=== PATIENT | female | born 1955 | race Caucasian/White ===

== ENCOUNTER → 2016-09-04 | Day surgery (SDC) | payer OTHER ==
[~2016-09-04] VITALS: Ht 147.3 cm; Wt 42.4 kg
[~2016-09-04] MED LIST: *morphine SULFATE 8 MG/ML PERIprocedure ONLY ONE; ALBU0.08 NEB; ALBUAER3 INH; ALEN1TAB48 PO; AMLO5TAB2 PO; CHLORHEXIDINE GLUCONATE 2 % 1 PACK (2 CLOTHS) TOPICAL PRN; DEXAMETHASONE SOD PHOS 4 MG/ML VIAL ONE; DICL1GEL TOPICAL; DO NOT ADM ANY ANTICOAGULANT DRUGS PRN; EPINEPHrine HCL (1:1000) 1 MG/ML VIAL ONE; FURO20TA PO; GABA600T PO; HYDR-3133 PO; INSULIN HUMAN REGULAR 1,000 UNITS/10 ML VIAL SQ PRN; LACTATED RINGER'S 1000 ML IV PRN; LIDOCAINE HCL 2% 100 MG/5 ML SYRINGE ONE; LISI10TA3 PO; METOPROLOL TARTRATE 25 MG TAB PO PRN; MIRA3350 PO; MONT10TA4 PO; MORPHINE SULFATE 4 MG/ML INJ ONE; OMEP40CA2 PO; ONDANSETRON HCL 4 MG/2 ML VIAL IV PUSH ONE; PAME25CA PO; PERC7.5T13 PO; PERI8.6T PO; PHENYLEPH/NS 1000 MCG/10 ML SYR IV ONE; POVIDONE IODINE 5% (ANTISEPSIS KIT) 4 APPLICATIONS EACH NARE PRN; PRED10 PO; PROPOFOL 200 MG/20 ML AMP IV ONE; ROPI4TAB PO; SODIUM CHLORID 0.9% 500 ML IV PRN; SPIRCAP INH; SYMB160A INH; TRAZ50TA12 PO; [UNRECOGNIZED DRUG - OTHER]; ePHEDrine/NS 25 MG/5 ML SYR IV ONE
[2016-09-04 06:46] VITALS: BP 126/66; PULSE 64; RESP 18; TEMP 98.3; O2SAT 100
[2016-09-04 07:12] LABS: AUTOMATED NEUTROPHIL # 4.2 TH/MM3 (1.8-7.7); BASOPHIL % 0.7 % (0.0-2.0); EOSINOPHIL # 0.2 TH/MM3 (0-0.4); EOSINOPHIL % 3.1 % (0.0-4.0); HEMATOCRIT 34.8 % (35.0-46.0); HEMO FLAGS DIFF FINAL; LYMPH % 28.2 % (9.0-44.0); LYMPHOCYTE # 1.9 TH/MM3 (1.0-4.8); MEAN CELL VOLUME 87.1 FL (80.0-100.0); MEAN CORPUSCULAR HGB CONC 33.4 % (32.0-36.0); MONO % 6.1 % (0.0-8.0); NEUT % 61.9 % (16.0-70.0); PLATELET COUNT 178 TH/MM3 (150-450); RED BLOOD COUNT 3.99 MIL/MM3 (4.00-5.30); RED CELL DISTRIBUTION WIDTH 13.6 % (11.6-17.2); WHITE BLOOD COUNT 6.8 TH/MM3 (4.0-11.0)
[2016-09-04 07:32] LABS: APTT (PATIENT) 27.1 SEC (24.3-30.1); INTERNATIONAL NORMALIZED RATIO 0.9 RATIO; PROTHROMBIN TIME - PATIENT 10.3 SEC (9.8-11.6)
[2016-09-04 10:15] VITALS: BP 146/62; PULSE 76; RESP 20; TEMP 98.1; O2SAT 100
--- NOTE | 2016-09-15 19:05 | MR ---
cc: MAXIMO MARSH M.D. DATE 09/15/16 PROCEDURE Fiberoptic bronchoscopy flexible REASON FOR BRONCHOSCOPY Bilateral lung nodules, rule out underlying malignancy, rule out chronic inflammatory process. Fiberoptic bronchoscopy performed via LMA. Anesthesia general. Vocal cords visualized, appeared intact. Trachea mildly hyperemic. Karen sharp. Right main stem bronchus, right upper, middle and lower lobes, left main bronchus, left upper and lower lobes inspected. No obstructive pathology or mass lesion seen. Diffuse mild to moderate hyperemia throughout noticed. Washings obtained from both sides of the tracheobronchial tree for routine TB, fungal cultures as well as cytological exam. Cytological brush biopsies right lower lobe obtained for cytological exam. Procedure well tolerated. The patient transferred to recovery room in stable condition. IMPRESSION 1. Mild to moderate tracheobronchitis 2. No obstruction or mass lesion. 3. Samples obtained as above 4. Procedure well tolerated 5. Patient transferred to recovery in stable condition. Maximo Marsh MD WWW/ /1:45 PM /6:51 PM
== END | disposition home or self-care (01) ==
LOC: HSDC 05:36
PROVIDERS: ATTEND Internal Medicine Sleep Medicine
DX: R04.2 Hemoptysis (principal); J40 Bronchitis, not specified as acute or chronic; J44.9 Chronic obstructive pulmonary disease, unspecified; I10 Essential (primary) hypertension; G25.81 Restless legs syndrome; E78.00 Pure hypercholesterolemia, unspecified; J18.9 Pneumonia, unspecified organism; J30.9 Allergic rhinitis, unspecified; K21.9 Gastro-esophageal reflux disease without esophagitis; G47.9 Sleep disorder, unspecified; Z87.891 Personal history of nicotine dependence
CPT/HCPCS: 00520; 31623; 85025; 85610; 85730; 87015; 87070; 87102; 87116; 87205; 87206; J0171; J1100; J2270; J2370; J2405; J7120

== ENCOUNTER 2016-12-18 08:13 | Emergency (ER) | payer OTHER ==
[~2016-12-18] VITALS: Ht 147.3 cm; Wt 39.0 kg
[~2016-12-18 08:13] MED LIST changes: -*morphine SULFATE 8 MG/ML PERIprocedure ONLY ONE; +AMLO2.5T PO; +ASPI1CHW4 CHEW; -CHLORHEXIDINE GLUCONATE 2 % 1 PACK (2 CLOTHS) TOPICAL PRN; +CYCL5TAB PO; -DEXAMETHASONE SOD PHOS 4 MG/ML VIAL ONE; -DICL1GEL TOPICAL; -DO NOT ADM ANY ANTICOAGULANT DRUGS PRN; -EPINEPHrine HCL (1:1000) 1 MG/ML VIAL ONE; -FURO20TA PO; +GABA300C5 PO; -INSULIN HUMAN REGULAR 1,000 UNITS/10 ML VIAL SQ PRN; -LACTATED RINGER'S 1000 ML IV PRN; -LIDOCAINE HCL 2% 100 MG/5 ML SYRINGE ONE; -METOPROLOL TARTRATE 25 MG TAB PO PRN; -MORPHINE SULFATE 4 MG/ML INJ ONE; +NORT25CA PO; -ONDANSETRON HCL 4 MG/2 ML VIAL IV PUSH ONE; +OXYC1TAB35 PO; -PAME25CA PO; -PERI8.6T PO; -PHENYLEPH/NS 1000 MCG/10 ML SYR IV ONE; -POVIDONE IODINE 5% (ANTISEPSIS KIT) 4 APPLICATIONS EACH NARE PRN; +PRAM0.12 PO; -PRED10 PO; -PROPOFOL 200 MG/20 ML AMP IV ONE; +REQU4TAB3 PO; -ROPI4TAB PO; -SODIUM CHLORID 0.9% 500 ML IV PRN; +VENTAER INH; -[UNRECOGNIZED DRUG - OTHER]; -ePHEDrine/NS 25 MG/5 ML SYR IV ONE
[2016-12-18 08:14] VITALS: BP 142/93; PULSE 77; RESP 13; TEMP 98; O2SAT 100
[2016-12-18] MEDS ORDERED: OMEP40CA2 PO (08:31)
[2016-12-18] MEDS ORDERED: MONT10TA4 PO (08:31)
[2016-12-18] MEDS ORDERED: PRAM0.12 PO (08:31)
[2016-12-18] MEDS ORDERED: AMLO5TAB2 PO (08:31)
[2016-12-18] MEDS ORDERED: LISI-515 PO (08:31)
[2016-12-18] MEDS ORDERED: ALBUAER3 INH (08:31)
[2016-12-18] MEDS ORDERED: CYCL5TAB PO (08:31)
[2016-12-18] MEDS ORDERED: SODIUM CHLOR 0.9% 1000 ML INJ 1,000 ML IV SCH (08:36)
[2016-12-18] MEDS ORDERED: SODIUM CHLORIDE 0.9% FLUSH 10 ML FLUSH IV FLUSH PRN (08:45)
[2016-12-18] MEDS ORDERED: oxyCODONE/ACETAMINOPHEN 5 MG/325 MG TAB PO ONE (08:45)
[2016-12-18 08:57] LABS: AUTOMATED NEUTROPHIL # 3.4 TH/MM3 (1.8-7.7); BASOPHIL # 0.1 TH/MM3 (0-0.2); EOSINOPHIL # 0.2 TH/MM3 (0-0.4); EOSINOPHIL % 3.1 % (0.0-4.0); HEMATOCRIT 41.4 % (35.0-46.0); HEMO FLAGS DIFF FINAL; LYMPH % 36.7 % (9.0-44.0); LYMPHOCYTE # 2.3 TH/MM3 (1.0-4.8); MEAN CORPUSCULAR HEMOGLOBIN 29.7 PG (27.0-34.0); MEAN CORPUSCULAR HGB CONC 34.5 % (32.0-36.0); MONO % 4.7 % (0.0-8.0); NEUT % 54.5 % (16.0-70.0); PLATELET COUNT 212 TH/MM3 (150-450); RED BLOOD COUNT 4.81 MIL/MM3 (4.00-5.30); WHITE BLOOD COUNT 6.2 TH/MM3 (4.0-11.0)
[2016-12-18 08:59] LABS: BLOOD, URINE NEG (NEG); GLUCOSE,URINE NEG (NEG); KETONE, URINE NEG (NEG); NITRITE,URINE NEG (NEG); URINE COLOR YELLOW (YELLW/STRAW)
[2016-12-18 09:01] LABS: COMMENT (UR) CULT NOT INDICATED; CULTURE IF INDICATED CULT NOT INDICATED
[2016-12-18 09:22] LABS: ALKALINE PHOSPHATASE 113 U/L (45-117); ALT (GPT) 22 U/L (10-53); TOTAL BILIRUBIN ADULT 0.4 MG/DL (0.2-1.0)
[2016-12-18 09:42] LABS: ANION GAP 5 MEQ/L (5-15); AST (GOT) 17 U/L (15-37); BICARBONATE 31.2 MEQ/L (21.0-32.0); BLOOD UREA NITROGEN 7 MG/DL (7-18); CHLORIDE 103 MEQ/L (98-107); GLOMERULAR FILTRATION RATE 72 ML/MIN (>89); POTASSIUM 4.4 MEQ/L (3.5-5.1); SODIUM (NA) 139 MEQ/L (136-145)
--- NOTE | 2016-12-18 10:00 | PD ---
HPI Chief Complaint: Abdominal Pain Time Seen by Provider: 08:32 Travel History International Travel<30 days: No Contact w/Intl Traveler<30days: No Traveled to known affect area: No History of Present Illness HPI 61-year-old female arrives due to pelvic pain. She reports decreased urination. Duration is only several weeks. She was evidently diagnosed with a potential mass based on CT imaging about 8 months ago. Subsequent sigmoidoscopy revealed no mass however colonoscopy was recommended however none was performed. She follows with family reunification specialist service and has been taking Percocet 7.5 mg tablets as needed for pain. She's had no fever. Nausea is reported however no vomiting. PFSH Past Medical History Arthritis: Yes (RA) Heart Rhythm Problems: No Cancer: Yes (BREAST) Cardiac Catheterization: Yes Cardiovascular Problems: Yes (PACEMAKER) High Cholesterol: No Chest Pain: Yes Congestive Heart Failure: No Cerebrovascular Accident: Yes (TIA) Diabetes: No Diminished Hearing: No Hypertension: Yes Implanted Vascular Access Dvce: Yes ([employer], MODEL [id number]) Past Surgical History Cardiac Surgery: Yes (PACEMAKER) Cholecystectomy: Yes Coronary Artery Bypass Graft: No Mastectomy: Yes (RIGHT) Family History Family Myocardial Infarction: Yes (father, brother) Social History Alcohol Use: No Tobacco Use: Yes Substance Use: No Allergies-Medications (Allergen,Severity, Reaction): Coded Allergies: pregabalin (Unverified Allergy, Severe, Rash, 12/18/16) tramadol (Unverified Allergy, Severe, Rash, 12/18/16) Reported Meds & Prescriptions Reported Meds & Active Scripts Active Reported Oxycodone-Acetaminophen 7.5-325 mg Tab 1 Tab PO Q6H PRN Proair Hfa 8.5 GM Inh (Albuterol Sulfate) 90 Mcg/Act Aer 2 Puff INH Q4HR PRN 108 mcg/actuation Pramipexole (Pramipexole Dihydrochloride) 0.125 Mg Tab 0.125 Mg PO DAILY Omeprazole 40 Mg Cap 40 Mg PO DAILY Montelukast (Montelukast Sodium) 10 Mg Tab 10 Mg PO HS Lisinopril 20 Mg Tab 20 Mg PO DAILY Flexeril (Cyclobenzaprine HCl) 5 Mg Tab 5 Mg PO TID Amlodipine (Amlodipine Besylate) 5 Mg Tab 5 Mg PO BID Aspirin 81 Low Dose (Aspirin) 81 Mg Chew 81 Mg CHEW DAILY Ventolin Hfa 18 GM Inh (Albuterol Sulfate) 90 Mcg/Act Aer 2 Puff INH Q4H PRN Symbicort Inh (Budesonide/Formoterol Fumarate) 160-4.5 Mcg/Act Aero 2 Puff INH Q12HR Spiriva Handihaler (Tiotropium Inh) 18 Mcg Cap 18 Mcg INH DAILY 1 capsule = 18 mcg Hydroxyzine HCl 25 Mg Tab 25 Mg PO TID Trazodone (Trazodone HCl) 50 Mg Tab 50 Mg PO HS Nortriptyline (Nortriptyline HCl) 25 Mg Cap 25 Mg PO HS Gabapentin 300 Mg Cap 600 Mg PO TID Review of Systems Except as stated in HPI: all other systems reviewed are Neg General / Constitutional: No: Fever Genitourinary: Positive: Pelvic Pain Physical Exam Narrative GENERAL: 61-year-old female pleasant well-nourished well-developed mild distress secondary to pain SKIN: Focused skin assessment warm/dry. HEAD: Atraumatic. Normocephalic. EYES: Pupils equal and round. No scleral icterus. No injection or drainage. ENT: No nasal bleeding or discharge. Mucous membranes pink and moist. NECK: Trachea midline. No JVD. CARDIOVASCULAR: Regular rate and rhythm. No murmur appreciated. RESPIRATORY: No accessory muscle use. Clear to auscultation. Breath sounds equal bilaterally. GASTROINTESTINAL: Soft. Tenderness palpation supra pubic abdomen. MUSCULOSKELETAL: No obvious deformities. No clubbing. No cyanosis. No edema. NEUROLOGICAL: Awake and alert. No obvious cranial nerve deficits. Motor grossly within normal limits. Normal speech. PSYCHIATRIC: Appropriate mood and affect; insight and judgment normal. Data Data Last Documented VS Vital Signs Date Time Temp Pulse Resp B/P (MAP) Pulse Ox O2 Delivery O2 Flow Rate FiO2 12/18/16 11:13 73 15 141/65 (90) 97 12/18/16 08:14 98.0 Orders Orders Complete Blood Count With Diff (12/18/16 08:36) Comprehensive Metabolic Panel (12/18/16 08:36) Lipase (12/18/16 08:36) Lactic Acid (12/18/16 08:36) Urinalysis - C+S If Indicated (12/18/16 08:36) Ct Abd/Pel W Iv Contrast(Rout) (12/18/16 08:36) Iv Access Insert/Monitor (12/18/16 08:36) Ecg Monitoring (12/18/16 08:36) Oximetry (12/18/16 08:36) Sodium Chlor 0.9% 1000 Ml Inj (Ns 1000 M (12/18/16 08:36) Sodium Chloride 0.9% Flush (Ns Flush) (12/18/16 08:45) Oxycodone-Acetamin 5-325 Mg (Percocet (12/18/16 08:45) Iohexol 350 Inj (Omnipaque 350 Inj) (12/18/16 10:05) Dicyclomine Inj (Bentyl Inj) (12/18/16 10:30) Ketorolac Inj (Toradol Inj) (12/18/16 10:30) Al-Mag Hy-Si 40-40-4 Mg/Ml Liq (Mag-Al P (12/18/16 10:30) Lidocaine 2% Viscous (Xylocaine 2% Visco (12/18/16 10:30) Ed Discharge Order (12/18/16 10:44) Labs Laboratory Tests Test 12/18/16 08:44 12/18/16 08:47 White Blood Count 6.2 TH/MM3 Red Blood Count 4.81 MIL/MM3 Hemoglobin 14.3 GM/DL Hematocrit 41.4 % Mean Corpuscular Volume 86.0 FL Mean Corpuscular Hemoglobin 29.7 PG Mean Corpuscular Hemoglobin Concent 34.5 % Red Cell Distribution Width 14.0 % Platelet Count 212 TH/MM3 Mean Platelet Volume 9.9 FL Neutrophils (%) (Auto) 54.5 % Lymphocytes (%) (Auto) 36.7 % Monocytes (%) (Auto) 4.7 % Eosinophils (%) (Auto) 3.1 % Basophils (%) (Auto) 1.0 % Neutrophils # (Auto) 3.4 TH/MM3 Lymphocytes # (Auto) 2.3 TH/MM3 Monocytes # (Auto) 0.3 TH/MM3 Eosinophils # (Auto) 0.2 TH/MM3 Basophils # (Auto) 0.1 TH/MM3 CBC Comment DIFF FINAL Differential Comment Urine Color YELLOW Urine Turbidity CLEAR Urine pH 7.0 Urine Specific [place] 1.015 Urine Protein NEG mg/dL Urine Glucose (UA) NEG mg/dL Urine Ketones NEG mg/dL Urine Occult Blood NEG Urine Nitrite NEG Urine Bilirubin NEG Urine Urobilinogen 2.0 MG/DL Urine Leukocyte Esterase NEG Urine RBC LESS THAN 1 /hpf Urine WBC LESS THAN 1 /hpf Microscopic Urinalysis Comment CULT NOT INDICATED Blood Urea Nitrogen 7 MG/DL Creatinine 0.81 MG/DL Random Glucose 134 MG/DL Total Protein 7.9 GM/DL Albumin 3.8 GM/DL Calcium Level 9.1 MG/DL Alkaline Phosphatase 113 U/L Aspartate Amino Transf (AST/SGOT) 17 U/L Alanine Aminotransferase (ALT/SGPT) 22 U/L Total Bilirubin 0.4 MG/DL Sodium Level 139 MEQ/L Potassium Level 4.4 MEQ/L Chloride Level 103 MEQ/L Carbon Dioxide Level 31.2 MEQ/L Anion Gap 5 MEQ/L Estimat Glomerular Filtration Rate 72 ML/MIN Lipase 58 U/L Lactic Acid Level 1.2 mmol/L MDM Medical Decision Making Medical Screen Exam Complete: Yes Emergency Medical Condition: Yes Medical Record Reviewed: Yes Differential Diagnosis Gastritis, pancreatitis, appendicitis, acute cholecystitis, ascending cholangitis, AAA, perforated viscous, mesenteric ischemia, hepatitis, cystitis, hydronephrosis/hydroureter/nephroureter calculus, mesenteric adenitis, biliary colic Narrative Course CBC & BMP Diagram 12/18/16 08:44 Total Protein 7.9, Albumin 3.8, Calcium Level 9.1, Alkaline Phosphatase 113, Aspartate Amino Transf (AST/SGOT) 17, Alanine Aminotransferase (ALT/SGPT) 22, Total Bilirubin 0.4 Lactic acid 1.2 Lipase 58 Urinalysis no UTI Last Impressions Abdomen/Pelvis CT 12/18/16 0836 Signed Impressions: Service Date/Time: Sunday, December 18, 2016 10:02 - CONCLUSION: Negative for pelvic mass. Jesus Venegas MD FACR Etiology unclear for pain. RN reports patient requested IV pain medication raising possibility of opioid tolerance. We'll try alternative pain management. GI follow up. Pt agreeable w plan. Diagnosis Primary Impression: Pelvic pain in female Referrals: Primary Care Physician 2 days Additional Instructions: You have a choice when it comes to health care, and we are glad that you chose [facility]. Hopefully, we have met your expectations on today's visit. You are welcome to return to [facility] at any time, as we are committed to meeting the health care needs of our community. Med/Other Pt SpecificInfo: Prescription(s) given Scripts Promethazine (Phenergan) 25 Mg Tablet 25 MG PO Q6H Y for NAUSEA OR VOMITING, #20 TAB 0 Refills Prov: Edgardo Han MD 12/18/16 Dicyclomine (Bentyl) 10 Mg Cap 10 MG PO TID for Bowel Management, #30 CAP 0 Refills Prov: Edgardo Han MD 12/18/16 Disposition: 01 DISCHARGE HOME Condition: Stable Edgardo Han MD Dec 18, 2016 10:00
[2016-12-18] MEDS ORDERED: IOHEXOL 350 MG/ML 10 ML VIAL (for RAD DIAG) IVCONTRAST ONE (10:05)
[2016-12-18] MEDS ORDERED: OXYC1TAB35 PO (10:25)
--- NOTE | 2016-12-18 10:29 | RADRPT ---
EXAM DATE/TIME: 12/18/2016 10:02 [facility] COMPARISON: No previous studies available for comparison. INDICATIONS : Pelvic pain for a few weeks. IV CONTRAST: 80 cc Omnipaque 350 (iohexol) IV ORAL CONTRAST: No oral contrast ingested. RADIATION DOSE: 4.98 CTDIvol (mGy) MEDICAL HISTORY : Carcinoma, breast. Hypertension. SURGICAL HISTORY : Cholecystectomy. Mastectomy, right. ENCOUNTER: Initial ACUITY: 3 weeks PAIN SCALE: 5/10 LOCATION: Bilateral pelvis TECHNIQUE: Volumetric scanning of the abdomen and pelvis was performed. Using automated exposure control and ad justment of the mA and/or kV according to patient size, radiation dose was kept as low as reasonably achievable to obtain optimal diagnostic quality images. DICOM format image data is available electro nically for review and comparison. FINDINGS: The lung base is are clear. The liver, spleen, pancreas and adrenals are unremarkable. Surgical clips are seen at the GE junctio n. There is symmetrical renal function. There is no ascites or adenopathy. Stool is seen throughout the colon There is no evidence for mass in the pelvis. The uterine cervical junction is prominent.. Direct vi sualization is suggested. Abdominal wall is intact Review of bone windows reveals only degenerative changes. CONCLUSION: Negative for pelvic mass. Jesus Venegas MD FACR on December 18, 2016 at 10:26 Board Certified Radiologist. This report was verified electronically.
[2016-12-18] MEDS ORDERED: KETOROLAC TROMETHAMINE 30 MG/ML (IVP) VIAL IVP ONE (10:30)
[2016-12-18] MEDS ORDERED: LIDOCAINE VISCOUS 2% SOLN 15 ML UDC PO ONE (10:30)
[2016-12-18] MEDS ORDERED: DICYCLOMINE HCL 20 MG/2 ML VIAL IM ONE (10:30)
[2016-12-18] MEDS ORDERED: ALUMINUM/MAGNESIUM/SIMETH 30 ML CUP PO ONE (10:30)
[2016-12-18 11:13] VITALS: BP 141/65
[2016-12-18] MEDS ORDERED: DICY10 PO (11:46)
[2016-12-18] MEDS ORDERED: PROM25TA10 PO (11:46)
[2016-12-28] MEDS ORDERED: GABA600T PO (12:26)
[2016-12-31] MEDS ORDERED: SYMB160A INH (10:50)
[2016-12-31] MEDS ORDERED: ALBUAER3 INH (10:50)
== END 2016-12-18 11:41 | disposition home or self-care (01) ==
LOC: NEPE 08:13 → MERGE 08:13 → NEPE 11:41
DX: R10.2 Pelvic and perineal pain (principal); M06.9 Rheumatoid arthritis, unspecified; I10 Essential (primary) hypertension; Z95.0 Presence of cardiac pacemaker; Z86.73 Personal history of transient ischemic attack (TIA), and cerebral infarction without residual deficits; Z85.3 Personal history of malignant neoplasm of breast; Z72.0 Tobacco use
CPT/HCPCS: 74177; 80053; 81001; 83605; 83690; 85025; 96361; 96372; 96374; 99285; J0500; J1885; J7030; Q9967

== ENCOUNTER 2017-01-13 14:48 | Emergency (ER) | payer OTHER ==
[~2017-01-13 14:48] MED LIST changes: -AMLO2.5T PO; +DICY10 PO; +LISI-515 PO; +PROM25TA10 PO; -REQU4TAB3 PO
[2017-01-13] MEDS ORDERED: IOHEXOL 350 MG/ML 10 ML VIAL (for RAD DIAG) IVCONTRAST ONE (14:49)
[2017-01-13 14:51] VITALS: BP 140/63; PULSE 90; RESP 20; TEMP 98.6; O2SAT 99
[2017-01-13 16:54] LABS: AUTOMATED NEUTROPHIL # 10.2 TH/MM3 (1.8-7.7); BASOPHIL # 0.1 TH/MM3 (0-0.2); BASOPHIL % 0.7 % (0.0-2.0); EOSINOPHIL # 0.2 TH/MM3 (0-0.4); EOSINOPHIL % 1.7 % (0.0-4.0); HEMATOCRIT 41.5 % (35.0-46.0); HEMO FLAGS DIFF FINAL; LYMPH % 18.6 % (9.0-44.0); LYMPHOCYTE # 2.5 TH/MM3 (1.0-4.8); MEAN CELL VOLUME 85.6 FL (80.0-100.0); MEAN CORPUSCULAR HGB CONC 33.9 % (32.0-36.0); MONO % 4.8 % (0.0-8.0); NEUT % 74.2 % (16.0-70.0); PLATELET COUNT 257 TH/MM3 (150-450); RED BLOOD COUNT 4.85 MIL/MM3 (4.00-5.30); RED CELL DISTRIBUTION WIDTH 13.3 % (11.6-17.2); WHITE BLOOD COUNT 13.7 TH/MM3 (4.0-11.0)
[2017-01-13 17:11] LABS: POTASSIUM 4.7 MEQ/L (3.5-5.1)
[2017-01-13 17:36] LABS: BLOOD, URINE NEG (NEG); COMMENT (UR) CULT NOT INDICATED; CULTURE IF INDICATED CULT NOT INDICATED; GLUCOSE,URINE NEG (NEG); KETONE, URINE NEG (NEG); NITRITE,URINE NEG (NEG); PH, URINE 7.5 (5.0-8.5); SQUAMOUS EPITHELIAL CELL URINE 1 /hpf (0-5); URINE COLOR YELLOW (YELLW/STRAW)
[2017-01-13] MEDS ORDERED: SODIUM CHLORIDE 0.9% FLUSH 10 ML FLUSH IV FLUSH PRN (17:45)
[2017-01-13] MEDS ORDERED: DICYCLOMINE HCL 20 MG/2 ML VIAL IM ONE (17:45)
--- NOTE | 2017-01-13 17:51 | PD ---
HPI Chief Complaint: Abdominal Pain Time Seen by Provider: 17:25 Travel History International Travel<30 days: No Contact w/Intl Traveler<30days: No Traveled to known affect area: No History of Present Illness HPI 61-year-old female complains of low abdominal pain and pelvic pain. Patient has history recurrent low abdominal pelvic pain. Patient states the pain is cramping pain and sharp pain localized to lower abdomen pelvic area. Patient denies any pain radiation. On a scale of 1-10 the pain is a 10. Patient has been seen in emergency room and by personal physician for that. Patient was referred to GI specialist. Patient is awaiting colonoscopy 7 days from now. Patient states that the pain is worse today. Patient states that she has persistent nausea but no vomiting no diarrhea. Patient denies any dysuria or frequency. Patient states that he has low-grade fever at home. Patient has history of asthma, hypertension, osteoporosis, chronic pain, Brugada syndrome status post pacemaker placement. Patient status post hysterectomy, status post colonoscopy with polyps removal, right breast lumpectomy. Patient's on chronic pain medication at home. PFSH Past Medical History Arthritis: Yes (RA) Asthma: Yes Heart Rhythm Problems: No Cancer: Yes (BREAST) Cardiac Catheterization: Yes Cardiovascular Problems: Yes High Cholesterol: No Chest Pain: Yes Congestive Heart Failure: No COPD: Yes Cerebrovascular Accident: Yes (TIA) Diabetes: No Diminished Hearing: No Endocrine: No Gastrointestinal Disorders: Yes (ACID REFLUX) Genitourinary: No Hepatitis: No Hiatal Hernia: No Heparin Induced Thrombocytopen: No Hypertension: Yes Immune Disorder: No Implanted Vascular Access Dvce: Yes ([employer], MODEL [id number]) Musculoskeletal: Yes (arthritis entire body degenerative disease) Neurologic: No Psychiatric: No Reproductive: Yes (hx of hysterectomy) Respiratory: Yes Immunizations Current: No Thyroid Disease: No Tetanus Vaccination: < 5 Years Menopausal: Yes : 4 Para: 4 Miscarriage: 0 : 0 Past Surgical History Abdominal Surgery: Yes (HERNIA REPAIR, CHOLECYSTECTOMY) AICD: Yes Cardiac Surgery: Yes (PACEMAKER) Cholecystectomy: Yes Coronary Artery Bypass Graft: No Endocrine Surgery: No Genitourinary Surgery: No Gynecologic Surgery: Yes (fibroids in breast, HYSERTECTOMY) Hysterectomy: Yes Joint Replacement: No Mastectomy: Yes (RIGHT) Pacemaker: Yes ([employer]) Other Surgery: Yes (abd hernia, right knee surgery) Family History Family Myocardial Infarction: Yes (father, brother) Social History Alcohol Use: No Tobacco Use: Yes Substance Use: No Allergies-Medications (Allergen,Severity, Reaction): Coded Allergies: tramadol (Unverified Allergy, Severe, Palpitations, 01/13/17) duloxetine (Unverified Allergy, Intermediate, Rash, 01/13/17) Rash all over ibuprofen (Unverified Allergy, Intermediate, Nausea/Vomiting, 01/13/17) ketorolac (Unverified Allergy, Intermediate, Rash, 01/13/17) Rash all over body naproxen (Unverified Allergy, Intermediate, Rash, 01/13/17) Rash all over body pregabalin (Unverified Allergy, Intermediate, Rash, 01/13/17) Rash all over body promethazine (Unverified Allergy, Intermediate, Rash, 01/13/17) Rash all over body tizanidine (Unverified Allergy, Intermediate, Elevated blood sugar , ) Reported Meds & Prescriptions Reported Meds & Active Scripts Active Bentyl (Dicyclomine HCl) 10 Mg Cap 10 Mg PO TID PRN Omeprazole 40 Mg Cap 40 Mg PO DAILY Alendronate (Alendronate Sodium) 70 Mg Tab 70 Mg PO Q7D Symbicort Inh (Budesonide/Formoterol Fumarate) 160-4.5 Mcg/Act Aero 2 Puff INH ONCE Proair Hfa 8.5 GM Inh (Albuterol Sulfate) 90 Mcg/Act Aer 2 Puff INH Q4HR PRN 108 mcg/actuation Gabapentin 600 Mg Tab 600 Mg PO TID Phenergan (Promethazine HCl) 25 Mg Tablet 25 Mg PO Q6H PRN Bentyl (Dicyclomine HCl) 10 Mg Cap 10 Mg PO TID Pramipexole (Pramipexole Dihydrochloride) 0.125 Mg Tab 0.125 Mg PO DAILY Percocet (Oxycodone-Acetaminophen) 7.5-325 mg Tab 1 Tab PO Q6H PRN Do not fill until 02/03/2017 Percocet (Oxycodone-Acetaminophen) 7.5-325 mg Tab 1 Tab PO Q6H PRN Do not fill until 01/04/2017 Percocet (Oxycodone-Acetaminophen) 7.5-325 mg Tab 1 Tab PO Q6HR PRN Lisinopril 10 Mg Tab 20 Mg PO DAILY Spiriva Handihaler (Tiotropium Inh) 18 Mcg Cap 18 Mcg INH DAILY 1 capsule = 18 mcg Montelukast (Montelukast Sodium) 10 Mg Tab 10 Mg PO HS Trazodone (Trazodone HCl) 50 Mg Tab 50 Mg PO HS Miralax Powder (Polyethylene Glycol 3350 Powder) 17 Gm Powd 17 Gm PO DAILY Mix and dissolve one measuring cap-ful (17 grams) in water or juice. Amlodipine (Amlodipine Besylate) 5 Mg Tab 5 Mg PO BID Albuterol Neb (Albuterol Sulfate) 2.5 Mg/3 Ml Neb 2.5 Mg NEB Q4HR NEB PRN Flexeril (Cyclobenzaprine HCl) 5 Mg Tab 5 Mg PO TID Hydroxyzine HCl 25 Mg Tab 25 Mg PO TID PRN Reported Oxycodone-Acetaminophen 7.5-325 mg Tab 1 Tab PO Q6H PRN Proair Hfa 8.5 GM Inh (Albuterol Sulfate) 90 Mcg/Act Aer 2 Puff INH Q4HR PRN 108 mcg/actuation Pramipexole (Pramipexole Dihydrochloride) 0.125 Mg Tab 0.125 Mg PO DAILY Omeprazole 40 Mg Cap 40 Mg PO DAILY Montelukast (Montelukast Sodium) 10 Mg Tab 10 Mg PO HS Lisinopril 20 Mg Tab 20 Mg PO DAILY Flexeril (Cyclobenzaprine HCl) 5 Mg Tab 5 Mg PO TID Amlodipine (Amlodipine Besylate) 5 Mg Tab 5 Mg PO BID Aspirin 81 Low Dose (Aspirin) 81 Mg Chew 81 Mg CHEW DAILY Ventolin Hfa 18 GM Inh (Albuterol Sulfate) 90 Mcg/Act Aer 2 Puff INH Q4H PRN Symbicort Inh (Budesonide/Formoterol Fumarate) 160-4.5 Mcg/Act Aero 2 Puff INH Q12HR Spiriva Handihaler (Tiotropium Inh) 18 Mcg Cap 18 Mcg INH DAILY 1 capsule = 18 mcg Hydroxyzine HCl 25 Mg Tab 25 Mg PO TID Trazodone (Trazodone HCl) 50 Mg Tab 50 Mg PO HS Nortriptyline (Nortriptyline HCl) 25 Mg Cap 25 Mg PO HS Gabapentin 300 Mg Cap 600 Mg PO TID Review of Systems General / Constitutional: No: Fever Eyes: No: Visual changes HENT: No: Headaches Cardiovascular: No: Chest Pain or Discomfort Respiratory: No: Shortness of Breath Gastrointestinal: Positive: Nausea, Abdominal Pain Genitourinary: No: Dysuria Musculoskeletal: No: Pain Skin: No Rash Neurologic: No: Weakness Psychiatric: No: Depression Endocrine: No: Polydipsia Hematologic/Lymphatic: No: Easy Bruising Physical Exam Narrative GENERAL: Well-nourished, well-developed patient. SKIN: Focused skin assessment warm/dry. HEAD: Normocephalic. EYES: No scleral icterus. No injection or drainage. NECK: Supple, trachea midline. No JVD or lymphadenopathy. CARDIOVASCULAR: Regular rate and rhythm without murmurs, gallops, or rubs. RESPIRATORY: Breath sounds equal bilaterally. No accessory muscle use. GASTROINTESTINAL: Abdomen soft, nondistended. Patient has moderate tenderness on palpation lower abdomen. No rebound tenderness. No mass. MUSCULOSKELETAL: No cyanosis, or edema. BACK: Nontender without obvious deformity. No CVA tenderness. Neurologic exam normal. Data Data Last Documented VS Vital Signs Date Time Temp Pulse Resp B/P (MAP) Pulse Ox O2 Delivery O2 Flow Rate FiO2 01/13/17 17:59 99 01/13/17 14:51 98.6 90 20 Orders Orders Urinalysis - C+S If Indicated (01/13/17 15:24) Complete Blood Count With Diff (01/13/17 15:25) Basic Metabolic Panel (Bmp) (01/13/17 15:25) Ct Abd/Pel W Iv Contrast(Rout) (01/13/17 17:43) Iv Access Insert/Monitor (01/13/17 17:43) Ecg Monitoring (01/13/17 17:43) Oximetry (01/13/17 17:43) Sodium Chloride 0.9% Flush (Ns Flush) (01/13/17 17:45) Dicyclomine Inj (Bentyl Inj) (01/13/17 17:45) Iohexol 350 Inj (Omnipaque 350 Inj) (01/13/17 14:49) Ed Discharge Order (01/13/17 19:29) Labs Laboratory Tests Test 01/13/17 15:35 01/13/17 16:07 Urine Color YELLOW Urine Turbidity HAZY Urine pH 7.5 Urine Specific [place] 1.025 Urine Protein TRACE mg/dL Urine Glucose (UA) NEG mg/dL Urine Ketones NEG mg/dL Urine Occult Blood NEG Urine Nitrite NEG Urine Bilirubin NEG Urine Urobilinogen LESS THAN 2.0 MG/DL Urine Leukocyte Esterase NEG Urine WBC LESS THAN 1 /hpf Urine Squamous Epithelial Cells 1 /hpf Microscopic Urinalysis Comment CULT NOT INDICATED White Blood Count 13.7 TH/MM3 Red Blood Count 4.85 MIL/MM3 Hemoglobin 14.1 GM/DL Hematocrit 41.5 % Mean Corpuscular Volume 85.6 FL Mean Corpuscular Hemoglobin 29.0 PG Mean Corpuscular Hemoglobin Concent 33.9 % Red Cell Distribution Width 13.3 % Platelet Count 257 TH/MM3 Mean Platelet Volume 9.5 FL Neutrophils (%) (Auto) 74.2 % Lymphocytes (%) (Auto) 18.6 % Monocytes (%) (Auto) 4.8 % Eosinophils (%) (Auto) 1.7 % Basophils (%) (Auto) 0.7 % Neutrophils # (Auto) 10.2 TH/MM3 Lymphocytes # (Auto) 2.5 TH/MM3 Monocytes # (Auto) 0.7 TH/MM3 Eosinophils # (Auto) 0.2 TH/MM3 Basophils # (Auto) 0.1 TH/MM3 CBC Comment DIFF FINAL Differential Comment Blood Urea Nitrogen 12 MG/DL Creatinine 0.75 MG/DL Random Glucose 89 MG/DL Calcium Level 9.6 MG/DL Sodium Level 136 MEQ/L Potassium Level 4.7 MEQ/L Chloride Level 103 MEQ/L Carbon Dioxide Level 29.0 MEQ/L Anion Gap 4 MEQ/L Estimat Glomerular Filtration Rate 79 ML/MIN [facility] Medical Decision Making Medical Screen Exam Complete: Yes Emergency Medical Condition: Yes Medical Record Reviewed: Yes Interpretation(s) [address] abdomen and pelvis shows prominence of intrahepatic electrocardiac biliary system status post cholecystectomy. Differential Diagnosis Differential diagnosis including colitis, UTI, pyelonephritis, and nephrolithiasis, appendicitis Narrative Course 61-year-old female with recurrent low abdominal pain. Diagnosis Primary Impression: Abdominal pain Qualified Codes: R10.30 - Lower abdominal pain, unspecified Patient Instructions: General Instructions Additional Instructions: Bentyl as needed. Continue all medication. Follow-up with GI specialist and personal physician. Return if worse. Med/Other Pt SpecificInfo: Prescription(s) given Scripts Dicyclomine (Bentyl) 10 Mg Cap 10 MG PO TID Y for Bowel Management, #30 CAP 0 Refills Prov: José Luis Polk MD 01/13/17 Disposition: 01 DISCHARGE HOME Condition: Stable José Luis Polk MD Jan 13, 2017 17:51
[2017-01-13 17:59] VITALS: O2SAT 99
--- NOTE | 2017-01-13 19:19 | RADRPT ---
EXAM DATE/TIME: 01/13/2017 18:49 [facility] COMPARISON: CT ABDOMEN & PELVIS W CONTRAST, December 18, 2016, 10:02. INDICATIONS : Abdomen and pelvic pain past month. IV CONTRAST: 75 cc Omnipaque 350 (iohexol) IV ORAL CONTRAST: No oral contrast ingested. RADIATION DOSE: 6.64 CTDIvol (mGy) MEDICAL HISTORY : Cardiovascular disease. Hypertension. Chronic obstructive pulmonary disease.Breast cancer SURGICAL HISTORY : Mastectomy, bilateral. Cholecystectomy.Hysterectomy. ENCOUNTER: Initial ACUITY: 1 month PAIN SCALE: 5/10 LOCATION: Bilateral abdomen and pelvis TECHNIQUE: Volumetric scanning of the abdomen and pelvis was performed. Using automated exposure control and ad justment of the mA and/or kV according to patient size, radiation dose was kept as low as reasonably achievable to obtain optimal diagnostic quality images. DICOM format image data is available electro nically for review and comparison. FINDINGS: LOWER LUNGS: The visualized lower lungs are clear. LIVER: Homogeneous density without lesion. There is mild prominence of the central intrahepatic and extrahep atic biliary system with the common bile duct measuring 9 mm. No calcified distal common bile duct ca lculus is noted. Correlation with alkaline phosphatase and bilirubin levels is suggested to rule out biliary obstruction. [place] phenomenon status post cholecystectomy is also in the differential. SPLEEN: Normal size without lesion. PANCREAS: Within normal limits. KIDNEYS: Normal in size and shape. There is no mass, stone or hydronephrosis. ADRENAL GLANDS: Within normal limits. VASCULAR: There is no aortic aneurysm. BOWEL/MESENTERY: The stomach, small bowel, and colon demonstrate no acute abnormality. There is no free intraperitone al air or fluid. ABDOMINAL WALL: Within normal limits. RETROPERITONEUM: There is no lymphadenopathy. BLADDER: No wall thickening or mass. REPRODUCTIVE: Within normal limits. INGUINAL: There is no lymphadenopathy or hernia. MUSCULOSKELETAL: Within normal limits for patient age. CONCLUSION: Mild prominence of the central intrahepatic and extrahepatic biliary system with the common bile duct measuring 9 mm. No calcified distal common bile duct calculus is noted. Correlation with alkaline phosphatase and bilirubin levels is suggested to rule out biliary obstruction. Reservoi r phenomenon status post cholecystectomy is also in the differential. Vickey Barboza MD on January 13, 2017 at 19:12 Board Certified Radiologist. This report was verified electronically.
[2017-01-13] MEDS ORDERED: DICY10 PO (19:29)
== END 2017-01-13 20:13 | disposition home or self-care (01) ==
LOC: NEPD 14:48
DX: R10.2 Pelvic and perineal pain (principal); I10 Essential (primary) hypertension; Z72.0 Tobacco use
CPT/HCPCS: 74177; 80048; 81001; 85025; 96372; 99285; J0500; Q9967

== ENCOUNTER 2017-05-24 10:05 | Emergency (ER) | payer OTHER ==
[~2017-05-24] VITALS: Ht 147.3 cm; Wt 42.0 kg
[2017-05-24] MEDS ORDERED: IOHEXOL 350 MG/ML 10 ML VIAL (for RAD DIAG) IVCONTRAST ONE (10:06)
[2017-05-24 10:15] VITALS: BP 157/72; PULSE 70; RESP 22; TEMP 98.7; O2SAT 100
[2017-05-24 10:35] VITALS: BP 153/72; PULSE 75; RESP 18; O2SAT 98
[2017-05-24] MEDS ORDERED: SODIUM CHLOR 0.9% 1000 ML INJ 1,000 ML IV SCH (11:11)
--- NOTE | 2017-05-24 11:13 | PD ---
HPI Chief Complaint: Abdominal Pain Time Seen by Provider: 11:04 Travel History International Travel<30 days: No Contact w/Intl Traveler<30days: No Traveled to known affect area: No History of Present Illness HPI This is a 61-year-old female who reports a history of colon cancer. She follows with a residential framing carpenter in [place] and she has an appointment tomorrow. She presents for evaluation of abdominal pain. She has some underlying chronic abdominal pain but she reports that her current abdominal pain started 2 weeks ago. She describes it as a "tense pain" in her lower abdomen which is constant. She endorses associated nausea, vomiting. At some point in the last month her primary care physician changed her pain regimen from Percocet to Lortab. She is denying dysuria, flank pain, diarrhea or constipation. No other complaints. PFSH Past Medical History Arthritis: Yes (RA) Asthma: Yes Heart Rhythm Problems: No Cancer: Yes (BREAST, COLON ) Cardiac Catheterization: Yes Cardiovascular Problems: Yes High Cholesterol: No Chemotherapy: Yes Chest Pain: Yes Congestive Heart Failure: No COPD: Yes Cerebrovascular Accident: Yes (TIA) Diabetes: No Diminished Hearing: No Endocrine: No Gastrointestinal Disorders: Yes (ACID REFLUX) Genitourinary: No Hepatitis: No Hiatal Hernia: No Heparin Induced Thrombocytopen: No Hypertension: Yes Immune Disorder: No Implanted Vascular Access Dvce: Yes ([employer], MODEL [id number]) Musculoskeletal: Yes (arthritis entire body degenerative disease) Neurologic: No Psychiatric: No Reproductive: Yes (hx of hysterectomy) Respiratory: Yes Immunizations Current: No Thyroid Disease: No Tetanus Vaccination: < 5 Years Influenza Vaccination: Yes ?: Not Menopausal: Yes : 4 Para: 4 Miscarriage: 0 : 0 Past Surgical History Abdominal Surgery: Yes (HERNIA REPAIR, CHOLECYSTECTOMY) AICD: Yes Cardiac Surgery: Yes (PACEMAKER) Cholecystectomy: Yes Coronary Artery Bypass Graft: No Endocrine Surgery: No Genitourinary Surgery: No Gynecologic Surgery: Yes (fibroids in breast, HYSERTECTOMY) Hysterectomy: Yes Joint Replacement: No Mastectomy: Yes (RIGHT) Pacemaker: Yes ([employer]) Other Surgery: Yes (abd hernia, right knee surgery) Family History Family Myocardial Infarction: Yes (father, brother) Social History Alcohol Use: No Tobacco Use: Yes (1 ppd ) Substance Use: No Allergies-Medications (Allergen,Severity, Reaction): Coded Allergies: tramadol (Unverified Allergy, Severe, Palpitations, 02/15/17) duloxetine (Unverified Allergy, Intermediate, Rash, 02/15/17) Rash all over ibuprofen (Unverified Allergy, Intermediate, Nausea/Vomiting, 02/15/17) ketorolac (Unverified Allergy, Intermediate, Rash, 02/15/17) Rash all over body naproxen (Unverified Allergy, Intermediate, Rash, 02/15/17) Rash all over body pregabalin (Unverified Allergy, Intermediate, Rash, 02/15/17) Rash all over body promethazine (Unverified Allergy, Intermediate, Rash, 02/15/17) Rash all over body tizanidine (Unverified Allergy, Intermediate, Elevated blood sugar , ) Reported Meds & Prescriptions Reported Meds & Active Scripts Active Colace (Docusate Sodium) 100 Mg Capsule 100 Mg PO BID 14 Days Symbicort Inh (Budesonide/Formoterol Fumarate) 160-4.5 Mcg/Act Aero 2 Puff INH ONCE Pramipexole (Pramipexole Dihydrochloride) 0.125 Mg Tab 0.125 Mg PO DAILY Percocet (Oxycodone-Acetaminophen) 7.5-325 mg Tab 1 Tab PO Q6H PRN Do not fill until 04/26/2016 Percocet (Oxycodone-Acetaminophen) 7.5-325 mg Tab 1 Tab PO Q6H PRN Do not fill until 03/29/2017 Percocet (Oxycodone-Acetaminophen) 7.5-325 mg Tab 1 Tab PO Q6HR PRN Do not fill until 02/26/2017. Bentyl (Dicyclomine HCl) 10 Mg Cap 10 Mg PO TID PRN Omeprazole 40 Mg Cap 40 Mg PO DAILY Alendronate (Alendronate Sodium) 70 Mg Tab 70 Mg PO Q7D Proair Hfa 8.5 GM Inh (Albuterol Sulfate) 90 Mcg/Act Aer 2 Puff INH Q4HR PRN 108 mcg/actuation Gabapentin 600 Mg Tab 600 Mg PO TID Phenergan (Promethazine HCl) 25 Mg Tablet 25 Mg PO Q6H PRN Bentyl (Dicyclomine HCl) 10 Mg Cap 10 Mg PO TID Lisinopril 10 Mg Tab 20 Mg PO DAILY Spiriva Handihaler (Tiotropium Inh) 18 Mcg Cap 18 Mcg INH DAILY 1 capsule = 18 mcg Montelukast (Montelukast Sodium) 10 Mg Tab 10 Mg PO HS Trazodone (Trazodone HCl) 50 Mg Tab 50 Mg PO HS Miralax Powder (Polyethylene Glycol 3350 Powder) 17 Gm Powd 17 Gm PO DAILY Mix and dissolve one measuring cap-ful (17 grams) in water or juice. Amlodipine (Amlodipine Besylate) 5 Mg Tab 5 Mg PO BID Albuterol Neb (Albuterol Sulfate) 2.5 Mg/3 Ml Neb 2.5 Mg NEB Q4HR NEB PRN Flexeril (Cyclobenzaprine HCl) 5 Mg Tab 5 Mg PO TID Reported Oxycodone-Acetaminophen 7.5-325 mg Tab 1 Tab PO Q6H PRN Proair Hfa 8.5 GM Inh (Albuterol Sulfate) 90 Mcg/Act Aer 2 Puff INH Q4HR PRN 108 mcg/actuation Pramipexole (Pramipexole Dihydrochloride) 0.125 Mg Tab 0.125 Mg PO DAILY Omeprazole 40 Mg Cap 40 Mg PO DAILY Montelukast (Montelukast Sodium) 10 Mg Tab 10 Mg PO HS Lisinopril 20 Mg Tab 20 Mg PO DAILY Flexeril (Cyclobenzaprine HCl) 5 Mg Tab 5 Mg PO TID Amlodipine (Amlodipine Besylate) 5 Mg Tab 5 Mg PO BID Aspirin 81 Low Dose (Aspirin) 81 Mg Chew 81 Mg CHEW DAILY Ventolin Hfa 18 GM Inh (Albuterol Sulfate) 90 Mcg/Act Aer 2 Puff INH Q4H PRN Symbicort Inh (Budesonide/Formoterol Fumarate) 160-4.5 Mcg/Act Aero 2 Puff INH Q12HR Spiriva Handihaler (Tiotropium Inh) 18 Mcg Cap 18 Mcg INH DAILY 1 capsule = 18 mcg Hydroxyzine HCl 25 Mg Tab 25 Mg PO TID Trazodone (Trazodone HCl) 50 Mg Tab 50 Mg PO HS Nortriptyline (Nortriptyline HCl) 25 Mg Cap 25 Mg PO HS Gabapentin 300 Mg Cap 600 Mg PO TID Review of Systems Except as stated in HPI: all other systems reviewed are Neg Physical Exam Narrative GENERAL: Well-developed well-nourished female who appears anxious. SKIN: Warm and dry. HEAD: Atraumatic. Normocephalic. EYES: Pupils equal and round. No scleral icterus. No injection or drainage. ENT: No nasal bleeding or discharge. Mucous membranes pink and moist. NECK: Trachea midline. No JVD. CARDIOVASCULAR: Regular rate and rhythm. No murmur appreciated. RESPIRATORY: No accessory muscle use. Clear to auscultation. Breath sounds equal bilaterally. GASTROINTESTINAL: Abdomen soft, tender to palpation in the lower quadrants without guarding. MUSCULOSKELETAL: No obvious deformities. No edema. NEUROLOGICAL: Awake and alert. No obvious cranial nerve deficits. Motor grossly within normal limits. Normal speech. Data Data Last Documented VS Vital Signs Date Time Temp Pulse Resp B/P (MAP) Pulse Ox O2 Delivery O2 Flow Rate FiO2 05/24/17 12:41 75 18 156/72 (100) 100 Room Air 05/24/17 10:15 98.7 Orders Orders Complete Blood Count With Diff (05/24/17 11:11) Comprehensive Metabolic Panel (05/24/17 11:11) Lipase (05/24/17 11:11) Urinalysis - C+S If Indicated (05/24/17 11:11) Ct Abd/Pel W Iv Contrast(Rout) (05/24/17 11:11) Iv Access Insert/Monitor (05/24/17 11:11) Morphine Inj (Morphine Inj) (05/24/17 11:15) Ondansetron Inj (Zofran Inj) (05/24/17 11:15) Sodium Chlor 0.9% 1000 Ml Inj (Ns 1000 M (05/24/17 11:11) Iohexol 350 Inj (Omnipaque 350 Inj) (05/24/17 10:06) Dicyclomine Inj (Bentyl Inj) (05/24/17 14:15) Ed Discharge Order (05/24/17 14:12) Labs Laboratory Tests Test 05/24/17 10:42 05/24/17 13:10 White Blood Count 6.5 TH/MM3 Red Blood Count 4.86 MIL/MM3 Hemoglobin 13.5 GM/DL Hematocrit 40.4 % Mean Corpuscular Volume 83.1 FL Mean Corpuscular Hemoglobin 27.9 PG Mean Corpuscular Hemoglobin Concent 33.5 % Red Cell Distribution Width 13.9 % Platelet Count 339 TH/MM3 Mean Platelet Volume 9.1 FL Neutrophils (%) (Auto) 56.6 % Lymphocytes (%) (Auto) 35.1 % Monocytes (%) (Auto) 5.5 % Eosinophils (%) (Auto) 1.6 % Basophils (%) (Auto) 1.2 % Neutrophils # (Auto) 3.7 TH/MM3 Lymphocytes # (Auto) 2.3 TH/MM3 Monocytes # (Auto) 0.4 TH/MM3 Eosinophils # (Auto) 0.1 TH/MM3 Basophils # (Auto) 0.1 TH/MM3 CBC Comment DIFF FINAL Differential Comment Blood Urea Nitrogen 10 MG/DL Creatinine 0.83 MG/DL Random Glucose 92 MG/DL Total Protein 8.0 GM/DL Albumin 3.8 GM/DL Calcium Level 9.7 MG/DL Alkaline Phosphatase 100 U/L Aspartate Amino Transf (AST/SGOT) 29 U/L Alanine Aminotransferase (ALT/SGPT) 20 U/L Total Bilirubin 0.6 MG/DL Sodium Level 139 MEQ/L Potassium Level 5.2 MEQ/L Chloride Level 105 MEQ/L Carbon Dioxide Level 28.8 MEQ/L Anion Gap 5 MEQ/L Estimat Glomerular Filtration Rate 70 ML/MIN Lipase 63 U/L Urine Color YELLOW Urine Turbidity CLEAR Urine pH 6.5 Urine Specific [place] 1.018 Urine Protein NEG mg/dL Urine Glucose (UA) NEG mg/dL Urine Ketones NEG mg/dL Urine Occult Blood NEG Urine Nitrite NEG Urine Bilirubin NEG Urine Urobilinogen LESS THAN 2.0 MG/DL Urine Leukocyte Esterase NEG Urine WBC LESS THAN 1 /hpf Urine Squamous Epithelial Cells 3 /hpf Microscopic Urinalysis Comment CULT NOT INDICATED MDM Medical Decision Making Medical Screen Exam Complete: Yes Emergency Medical Condition: Yes Medical Record Reviewed: Yes Differential Diagnosis Chronic abdominal pain related to malignancy versus obstruction versus constipation versus diverticulitis Narrative Course CT the abdomen and pelvis was obtained revealing CONCLUSION: Prominent and hepatic ducts and common bile duct stable minimal. Moderate stool throughout the colon progressed in the interval. I suspect the patient is constipated secondary to her frequent opiate analgesic use at home. Her CBC is unremarkable. Her CMP reveals a hemolyzed specimen with a potassium of 5.2, likely secondary to hemolysis. Urinalysis is normal. The patient was given a dose of Bentyl. She will be discharged with Colace. I did recommend that she discuss with her GI doctor tomorrow consideration of reducing her opiate use. Diagnosis Primary Impression: Abdominal pain Additional Instructions: Colace for constipation. Follow-up with her GI doctor tomorrow as scheduled. Return for any emergent medical conditions. Med/Other Pt SpecificInfo: Prescription(s) given Scripts Docusate Sodium (Colace) 100 Mg Capsule 100 MG PO BID for Prevent Constipation for 14 Days, #28 CAP 0 Refills Prov: Macario Benjamin MD 05/24/17 Disposition: 01 DISCHARGE HOME Condition: Stable Obinna Peña May 24, 2017 11:13
[2017-05-24] MEDS ORDERED: ONDANSETRON HCL 4 MG/2 ML VIAL IVP ONE (11:15)
[2017-05-24] MEDS ORDERED: MORPHINE SULFATE 4 MG/ML INJ IV PUSH ONE (11:15)
[2017-05-24 12:06] LABS: AUTOMATED NEUTROPHIL # 3.7 TH/MM3 (1.8-7.7); BASOPHIL # 0.1 TH/MM3 (0-0.2); BASOPHIL % 1.2 % (0.0-2.0); EOSINOPHIL # 0.1 TH/MM3 (0-0.4); EOSINOPHIL % 1.6 % (0.0-4.0); HEMATOCRIT 40.4 % (35.0-46.0); HEMOGLOBIN 13.5 GM/DL (11.6-15.3); LYMPH % 35.1 % (9.0-44.0); LYMPHOCYTE # 2.3 TH/MM3 (1.0-4.8); MEAN CELL VOLUME 83.1 FL (80.0-100.0); MEAN CORPUSCULAR HEMOGLOBIN 27.9 PG (27.0-34.0); MEAN CORPUSCULAR HGB CONC 33.5 % (32.0-36.0); MEAN PLATELET VOLUME 9.1 FL (7.0-11.0); MONO % 5.5 % (0.0-8.0); MONOCYTE # 0.4 TH/MM3 (0-0.9); NEUT % 56.6 % (16.0-70.0); PLATELET COUNT 339 TH/MM3 (150-450); RED BLOOD COUNT 4.86 MIL/MM3 (4.00-5.30); RED CELL DISTRIBUTION WIDTH 13.9 % (11.6-17.2); WHITE BLOOD COUNT 6.5 TH/MM3 (4.0-11.0)
[2017-05-24 12:31] LABS: ALKALINE PHOSPHATASE 100 U/L (45-117); ALT (GPT) 20 U/L (10-53); TOTAL BILIRUBIN ADULT 0.6 MG/DL (0.2-1.0)
[2017-05-24 12:41] VITALS: BP 156/72; PULSE 75; RESP 18; O2SAT 100
[2017-05-24 12:59] LABS: ALBUMIN 3.8 GM/DL (3.4-5.0); BICARBONATE 28.8 MEQ/L (21.0-32.0); BLOOD UREA NITROGEN 10 MG/DL (7-18); CALCIUM 9.7 MG/DL (8.5-10.1); CHLORIDE 105 MEQ/L (98-107); CREATININE 0.83 MG/DL (0.50-1.00); GLOMERULAR FILTRATION RATE 70 ML/MIN (>89); GLUCOSE,RANDOM 92 MG/DL (74-106); SODIUM (NA) 139 MEQ/L (136-145)
[2017-05-24 13:01] LABS: AST (GOT) 29 U/L (15-37)
--- NOTE | 2017-05-24 13:31 | RADRPT ---
EXAM DATE/TIME: 05/24/2017 13:09 [facility] COMPARISON: CT ABDOMEN & PELVIS W CONTRAST, January 13, 2017, 18:49. INDICATIONS : Lower abdomen pain with nausea,vomiting and constipation IV CONTRAST: 92 cc Omnipaque 350 (iohexol) IV ORAL CONTRAST: No oral contrast ingested. RADIATION DOSE: 6.64 CTDIvol (mGy) MEDICAL HISTORY : Carcinoma, breast. Carcinoma, colon. Chronic obstructive pulmonary disease.Hypertension,cardiac SURGICAL HISTORY : Cholecystectomy. Hysterectomy. ENCOUNTER: Initial ACUITY: 1 week PAIN SCALE: 10/10 LOCATION: Abdomen TECHNIQUE: Volumetric scanning of the abdomen and pelvis was performed. Using automated exposure control and ad justment of the mA and/or kV according to patient size, radiation dose was kept as low as reasonably achievable to obtain optimal diagnostic quality images. DICOM format image data is available electro nically for review and comparison. FINDINGS: LOWER LUNGS: The visualized lower lungs are clear. LIVER: Again seen is the mild duct dilatation and prominent common duct. Gallbladder surgically absent. SPLEEN: Normal size without lesion. PANCREAS: Within normal limits. KIDNEYS: Normal in size and shape. There is no mass, stone or hydronephrosis. ADRENAL GLANDS: Within normal limits. VASCULAR: There is no aortic aneurysm. BOWEL/MESENTERY: Moderate stool throughout the colon. ABDOMINAL WALL: Within normal limits. RETROPERITONEUM: There is no lymphadenopathy. BLADDER: No wall thickening or mass. REPRODUCTIVE: Within normal limits. INGUINAL: There is no lymphadenopathy or hernia. MUSCULOSKELETAL: Moderate degenerative changes in the lumbar spine. Injection granulomas are noted in the left buttoc ks. CONCLUSION: Prominent and hepatic ducts and common bile duct stable minimal. Moderate stool throughout the colon progressed in the interval. Jesus Venegas MD FACR on May 24, 2017 at 13:26 Board Certified Radiologist. This report was verified electronically.
[2017-05-24] MEDS ORDERED: COLA100C5 PO (13:36)
[2017-05-24 14:04] LABS: BILIRUBIN, URINE NEG (NEG); BLOOD, URINE NEG (NEG); GLUCOSE,URINE NEG (NEG); KETONE, URINE NEG (NEG); NITRITE,URINE NEG (NEG); PH, URINE 6.5 (5.0-8.5); SQUAMOUS EPITHELIAL CELL URINE 3 /hpf (0-5); URINE COLOR YELLOW (YELLW/STRAW); URINE LEUKOCYTE ESTERASE NEG (NEG)
[2017-05-24] MEDS ORDERED: DICYCLOMINE HCL 20 MG/2 ML VIAL IM ONE (14:15)
--- NOTE | 2017-05-24 14:22 | PD ---
Data Data Last Documented VS Vital Signs Date Time Temp Pulse Resp B/P (MAP) Pulse Ox O2 Delivery O2 Flow Rate FiO2 05/24/17 12:41 75 18 156/72 (100) 100 Room Air 05/24/17 10:15 98.7 Orders Orders Complete Blood Count With Diff (05/24/17 11:11) Comprehensive Metabolic Panel (05/24/17 11:11) Lipase (05/24/17 11:11) Urinalysis - C+S If Indicated (05/24/17 11:11) Ct Abd/Pel W Iv Contrast(Rout) (05/24/17 11:11) Iv Access Insert/Monitor (05/24/17 11:11) Morphine Inj (Morphine Inj) (05/24/17 11:15) Ondansetron Inj (Zofran Inj) (05/24/17 11:15) Sodium Chlor 0.9% 1000 Ml Inj (Ns 1000 M (05/24/17 11:11) Iohexol 350 Inj (Omnipaque 350 Inj) (05/24/17 10:06) Dicyclomine Inj (Bentyl Inj) (05/24/17 14:15) Ed Discharge Order (05/24/17 14:12) Labs Laboratory Tests Test 05/24/17 10:42 05/24/17 13:10 White Blood Count 6.5 TH/MM3 Red Blood Count 4.86 MIL/MM3 Hemoglobin 13.5 GM/DL Hematocrit 40.4 % Mean Corpuscular Volume 83.1 FL Mean Corpuscular Hemoglobin 27.9 PG Mean Corpuscular Hemoglobin Concent 33.5 % Red Cell Distribution Width 13.9 % Platelet Count 339 TH/MM3 Mean Platelet Volume 9.1 FL Neutrophils (%) (Auto) 56.6 % Lymphocytes (%) (Auto) 35.1 % Monocytes (%) (Auto) 5.5 % Eosinophils (%) (Auto) 1.6 % Basophils (%) (Auto) 1.2 % Neutrophils # (Auto) 3.7 TH/MM3 Lymphocytes # (Auto) 2.3 TH/MM3 Monocytes # (Auto) 0.4 TH/MM3 Eosinophils # (Auto) 0.1 TH/MM3 Basophils # (Auto) 0.1 TH/MM3 CBC Comment DIFF FINAL Differential Comment Blood Urea Nitrogen 10 MG/DL Creatinine 0.83 MG/DL Random Glucose 92 MG/DL Total Protein 8.0 GM/DL Albumin 3.8 GM/DL Calcium Level 9.7 MG/DL Alkaline Phosphatase 100 U/L Aspartate Amino Transf (AST/SGOT) 29 U/L Alanine Aminotransferase (ALT/SGPT) 20 U/L Total Bilirubin 0.6 MG/DL Sodium Level 139 MEQ/L Potassium Level 5.2 MEQ/L Chloride Level 105 MEQ/L Carbon Dioxide Level 28.8 MEQ/L Anion Gap 5 MEQ/L Estimat Glomerular Filtration Rate 70 ML/MIN Lipase 63 U/L Urine Color YELLOW Urine Turbidity CLEAR Urine pH 6.5 Urine Specific [place] 1.018 Urine Protein NEG mg/dL Urine Glucose (UA) NEG mg/dL Urine Ketones NEG mg/dL Urine Occult Blood NEG Urine Nitrite NEG Urine Bilirubin NEG Urine Urobilinogen LESS THAN 2.0 MG/DL Urine Leukocyte Esterase NEG Urine WBC LESS THAN 1 /hpf Urine Squamous Epithelial Cells 3 /hpf Microscopic Urinalysis Comment CULT NOT INDICATED MDM Supervised Visit with ARLENE: Yes Narrative Course I, Dr. Benjamin, have reviewed the advance practice practitioner's documentation and am in agreement, met with the patient face to face, made the diagnosis, and the medical decision making was done by me. *My assessment and Findings: Extensive workup was done including lab studies and CT of abdomen and pelvis. Nothing emergent is found. She does have appointment with her GI physician tomorrow. Stable for outpatient follow-up. Diagnosis Primary Impression: Abdominal pain Qualified Codes: R10.84 - Generalized abdominal pain Patient Instructions: General Instructions, Laxative, Stool Softeners (By mouth ), Abdominal Pain (ED) Departure Forms: Tests/Procedures Additional Instruction: Colace for constipation. Follow-up with her GI doctor tomorrow as scheduled. Return for any emergent medical conditions. Scripts Docusate Sodium (Colace) 100 Mg Capsule 100 MG PO BID for Prevent Constipation for 14 Days, #28 CAP 0 Refills Prov: Macario Benjamin MD 05/24/17 Disposition: 01 DISCHARGE HOME Condition: Stable Macario Benjamin MD May 24, 2017 14:22
== END 2017-05-24 14:29 | disposition home or self-care (01) ==
LOC: NEPC 10:05
DX: R10.9 Unspecified abdominal pain (principal); G89.29 Other chronic pain; I10 Essential (primary) hypertension; Z88.6 Allergy status to analgesic agent; Z95.810 Presence of automatic (implantable) cardiac defibrillator
CPT/HCPCS: 74177; 80053; 81001; 83690; 85025; 96361; 96374; 96375; 99284; J2270; J2405; J7030; Q9967